=== PATIENT | female | born 1995 | race Hispanic/Latino ===

== ENCOUNTER 2018-03-08 12:33 | Emergency (ER) | payer OTHER ==
[2018-03-08 12:46] VITALS: BMI 27.4
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
--- NOTE | 2018-03-08 14:49 | CT ---
PROCEDURE: CT HEAD WITHOUT CONTRAST. HISTORY: injury, dizzy, vomiting COMPARISON: None available. TECHNIQUE: Axial computed tomography images were obtained through the head/brain without intravenous contrast. Radiation dose: Total exam DLP = 844.56 mGy-cm. This CT exam was performed using one or more of the following dose reduction techniques: Automated exposure control, adjustment of the mA and/or kV according to patient size, and/or use of iterative reconstruction technique. FINDINGS: HEMORRHAGE: No intracranial hemorrhage. BRAIN: No mass effect or edema. No atrophy or chronic microvascular ischemic changes. VENTRICLES: Unremarkable. No hydrocephalus. CALVARIUM: Unremarkable. PARANASAL SINUSES: Unremarkable as visualized. No significant inflammatory changes. MASTOID AIR CELLS: Unremarkable as visualized. No inflammatory changes. OTHER FINDINGS: None. IMPRESSION: Normal CT of the Head. No acute intracranial hemorrhage.
[2018-03-08 15:04] VITALS: BP 112/68; PULSE 62; RESP 20; TEMP 98.2; O2SAT 100
== END 2018-03-08 15:09 | disposition home or self-care (01) ==
LOC: C.ER 12:33
DX: S06.0X0A Concussion without loss of consciousness, initial encounter (principal); V89.2XXA Person injured in unspecified motor-vehicle accident, traffic, initial encounter; Y92.414 Local residential or business street as the place of occurrence of the external cause